=== PATIENT | female | born 1955 | race Caucasian/White ===

== ENCOUNTER 2016-09-14 11:45 | Emergency (ER) | payer BC, MEDICARE ==
[2016-09-14 11:52] VITALS: TEMP 98
[2016-09-14 12:32] LABS: RBC URINE < 1 /hpf (0-3); URINE BILIRUBIN NEGATIVE (NEGATIVE); URINE BLOOD NEGATIVE (NEGATIVE); URINE COLOR Yellow (YELLOW); URINE GLUCOSE (UA) NORMAL (Normal); URINE KETONE NEGATIVE (NEGATIVE); URINE LEUKOCYTE ESTERASE NEG Leu/uL (Negative); URINE PROTEIN NEGATIVE (NEGATIVE); URINE UROBILINOGEN NORMAL mg/dL (0.2-1.0); WBC URINE 1 /hpf (0-5)
--- NOTE | 2016-09-14 13:39 | C.PDOC ---
History Of Present Illness 61 yr old female with PMHx of chronic back pain, presents to the ER with complaints of right sided back pain, shoulder pain radiating to the right leg for the past 2 days. Patient states the pain is 10/10. Patient denies fever, chills, nausea, vomiting, abdominal pain, diarrhea, dysuria, incontinence, weakness or numbness. Time Seen by Provider: 09/14/16 12:01 Chief Complaint (Nursing): Back Pain History Per: Patient History/Exam Limitations: no limitations Onset/Duration Of Symptoms: Days (2) Current Symptoms Are (Timing): Better Past Medical History Reviewed: Historical Data, Nursing Documentation, Vital Signs Vital Signs: Last Vital Signs Temp 98.0 F 09/14/16 11:52 Pulse 89 09/14/16 14:00 Resp 18 09/14/16 14:00 BP 128/75 09/14/16 14:00 Pulse Ox 97 09/14/16 14:00 - Medical History PMH: Back Problems (chronic) Surgical History: Appendectomy, Back Surgery (x2) Family History: States: No Known Family Hx - Social History Hx Tobacco Use: No Hx Alcohol Use: No Hx Substance Use: No - Immunization History Hx Tetanus Toxoid Vaccination: No Hx Influenza Vaccination: No Hx Pneumococcal Vaccination: No Review Of Systems Except As Marked, All Systems Reviewed And Found Negative. Constitutional: Negative for: Fever, Chills Gastrointestinal: Negative for: Nausea, Vomiting, Abdominal Pain, Diarrhea Genitourinary: Negative for: Dysuria, Incontinence Musculoskeletal: Positive for: Shoulder Pain (Right shoulder ), Back Pain ( Right lower back), Leg Pain (Radiating to right leg) Neurological: Negative for: Weakness, Numbness Physical Exam - Physical Exam Appears: Well, Non-toxic, No Acute Distress Skin: Warm, Dry, No Rash Head: Atraumatic, Normacephalic Neck: Normal, Normal ROM, No Midline Cervical Tenderness, Supple Chest: Symmetrical, No Tenderness Cardiovascular: Rhythm Regular, No Murmur Respiratory: Normal Breath Sounds, No Rales, No Rhonchi, No Stridor, No Wheezing Back: Normal Inspection, No CVA Tenderness, No Paraspinal Tenderness Extremity: Normal ROM, No Swelling Neurological/Psych: Oriented x3, Normal Speech, Normal Motor, Normal Sensation, Normal Reflexes ED Course And Treatment O2 Sat by Pulse Oximetry: 98 Medical Decision Making Medical Decision Making: PLAN: * Drug Screen * Urinalysis * Motrin PO * Valium PO * Tylenol PO Disposition Counseled Patient/Family Regarding: Diagnosis, Need For Followup, Rx Given - Disposition Disposition: HOME/ ROUTINE Disposition Time: 13:37 Condition: STABLE Prescriptions: traMADol/Acetaminophen [Ultracet 37.5/325 mg] 1 tab PO TID PRN #12 tab PRN Reason: pain Instructions: Back Pain (ED) Forms: General Discharge Instructions - POA Present On Arrival: None - Clinical Impression Clinical Impression: Low back pain - Scribe Statement The provider has reviewed the documentation as recorded by the Pratimaibkristin Kimball Provider Attestation: All medical record entries made by the Pratimaibkristin were at my direction and personally dictated by me. I have reviewed the chart and agree that the record accurately reflects my personal performance of the history, physical exam, medical decision making, and the department course for this patient. I have also personally directed, reviewed, and agree with the discharge instructions and disposition.
[2016-09-14 14:15] VITALS: BP 128/75; PULSE 89; RESP 18
[2016-09-14 14:52] VITALS: O2SAT 98
== END 2016-09-14 14:05 | disposition home or self-care (01) ==
LOC: C.ER 11:45
DX: M54.5 Low back pain (principal)
CPT/HCPCS: 81001; 99284; G0480